=== PATIENT | female | born 2000 | race Caucasian/White ===

== ENCOUNTER 2023-08-19 18:53 | Emergency (ER) | payer OTHER, SELFPAY ==
--- NOTE | ~2023-08-19 | US_ITS ---
EXAMINATION: US OB <=14 wk fetus w TV INDICATION: 7 weeks, no confirmed IUP, vag bleeding w/ clots TECHNIQUE: Sonography of the pelvis was performed by transabdominal and transvaginal techniques. COMPARISON: None. RESULT: Uterus: 7.3 x 4.7 x 5.2 cm. Anteverted. Homogenous myometrium. Intrauterine gestational sac: Single present. Mean Sac Diameter: 1.06 cm, corresponding gestational age 5 week 6 days. Yolk sac: None visualized. Embryo: Not seen. Subgestational hematoma: Absent . Right ovary: 2.4 x 1.4 x 1.2 cm. Vascular flow is present. No adnexal mass. Left ovary: 3.2 x 2.2 x 2.2 cm. Vascular flow is present. Corpus luteal cyst. Pelvis free fluid: Physiologic volume free fluid IMPRESSION: Intrauterine of uncertain viability. No pole identified, however this may be normal a t this stage of . Estimated Gestational Age: 5 weeks, 6 days by mean gestational sac diameter. AMY by ultrasound 2023. Recommend clinical/laboratory and sonographic follow-up to confirm viability. Reviewed, dictated and finalized at location [facility]. IMPRESSION: Intrauterine of uncertain viability. No pole identified, howeve r this may be normal at this stage of . Estimated Gestational Age: 5 weeks, 6 days by mean gestational sac diameter. E DD by ultrasound 04/14/2024. Recommend clinical/laboratory and sonographic follow-up to confirm viability.
[2023-08-19 18:57] VITALS: BP 153/95; PULSE 99; RESP 16; TEMP 36.8; O2SAT 100
[2023-08-19 19:13] LABS: Basophils Percent Auto 0.3 % (0.2-1.2); Eosinophils Absolute Auto 0.2 K/mm3 (0-0.3); Eosinophils Percent Auto 2.4 % (0-4.4); Hematocrit 38.6 % (37.0-47.0); Hemoglobin 11.8 g/dL (12.0-15.0); Immature Granulocyte Absolute 0.03 K/mm3 (0.00-0.031); Immature Granulocyte Percent A 0.3 % (0-0.5); Lymphocytes Absolute Auto 2.89 K/mm3 (0.9-3.2); Lymphocytes Percent Auto 28.4 % (18.3-44.2); Mean Corpuscular HGB Conc 30.6 g/dl (32-36); Mean Corpuscular Hemoglobin 25.5 pg (26-34); Mean Corpuscular Volume 83.4 fl (80-100); Mean Platelet Volume 9.2 fl (7.4-10.4); Monocytes Absolute Auto 0.7 K/mm3 (0.1-0.6); Neutrophils Absolute Auto 6.3 K/mm3 (1.3-6.7); Neutrophils Percent Auto 61.6 % (45.5-73.1); Platelet Count Result 355 k/mm3 (150-375); Red Blood Count 4.63 M/mm3 (4.2-5.4); Red Cell Distribution Width 14.6 % (11.5-14.5); White Blood Count 10.2 K/mm3 (4.5-10.0)
[2023-08-19 19:22] LABS: INR 0.9; Prothrombin Time 12.5 Seconds (11.1-14.7)
[2023-08-19 19:23] LABS: Partial Thromboplastin Time 27.6 Seconds (22.3-36.8)
[2023-08-19 19:35] LABS: Alanine Aminotransferase 29 U/L (6-35); Albumin Level 4.6 g/dL (3.5-5.1); Alkaline Phosphatase 82 U/L (38-126); Anion Gap 9 mmol/L (4-12); Aspartate Amino Transferase 25 U/L (14-36); Bilirubin,Total 0.2 mg/dL (0.2-1.3); Blood Urea Nitrogen 8 mg/dL (7-17); Calcium 9.7 mg/dL (8.4-10.2); Carbon Dioxide 22 mmol/L (22-30); Chloride 105 mmol/L (98-107); Estimated Glomerular Filt Rate > 60; Glucose 109 mg/dL (65-110); Potassium 3.9 mmol/L (3.4-5.0); Sodium 136 mmol/L (137-145)
--- NOTE | 2023-08-19 19:47 | ED.PREGNANCY ---
HPI - General Chief complaint: Vaginal Bleeding Stated complaint: vaginal bleeding 7 weeks preg Time Seen by Provider: 08/19/23 19:08 Source: patient Mode of arrival: ambulatory Limitations: no limitations History of Present Illness HPI Narrative: Patient is a 23-year-old female who presents the ED with report of vaginal bleeding. Patient is and currently approx 7 weeks gestation with LNMP of 06/26. She reports having an ultrasound at 5 weeks gestation, but states it was too early to see the necessary features. Saw a gestational sac, but no yolk sac or pole. Patient sees an OBGYN with [facility]. She reports she developed dark brown vaginal spotting yesterday. Bleeding became heavier, bright red, with some clots today. Reports some lower abdominal cramping. Denies significant nausea or vomiting. Denies fevers. Denies dizziness, lightheadedness, syncope. Related Data Allergies Allergy/AdvReac Type Severity Reaction Status Date / Time No Known Allergies Allergy Verified 08/19/23 18:54 Review of Systems Review of Systems: CONSTITUTIONAL: Denies fever, chills, or sweats. GASTROINTESTINAL: See HPI. GENITOURINARY: See HPI. MUSCULOSKELETAL: Denies back pain, extremity pain, myalgia. All systems reviewed & are unremarkable except as noted in HPI and below Exam Narrative: GENERAL: Well appearing, well-nourished, non-toxic, in no acute distress. HEAD: Normocephalic, atraumatic. RESPIRATORY: Airway patent, respirations nonlabored. Clear to auscultation bilaterally, no rales, rhonchi, wheezing. CARDIOVASCULAR: Regular rate and rhythm ABDOMINAL: Soft, no significant tenderness throughout abdomen, nondistended. Normoactive BS. MUSCULOSKELETAL: Moves all extremities. No gross deformities. SKIN: Warm, dry, normal color. NEURO: A&O X3. Speech clear. PSYCHIATRIC: Tearful. Normal interaction. Course Vital Signs Vital signs: Vital Signs Temperature 98.3 F 08/19/23 18:57 Pulse Rate 99 08/19/23 18:57 Respiratory Rate 16 08/19/23 18:57 Blood Pressure 153/95 H 08/19/23 18:57 Pulse Oximetry 100 08/19/23 18:57 Oxygen Delivery Room Air 08/19/23 18:57 Temperature 98.2 F 08/19/23 21:25 Pulse Rate 81 08/19/23 21:25 Respiratory Rate 17 08/19/23 21:25 Blood Pressure 119/76 08/19/23 21:25 Pulse Oximetry 100 08/19/23 21:25 Oxygen Delivery Room Air 08/19/23 18:57 MDM - OB/Uterine Contractions MDM Narrative Medical decision making narrative: Patient presented to ED with vaginal bleeding, approximately 7 weeks gestation, . Vital signs are stable upon arrival. Patient mildly anxious and tearful. Cbc with very minimal anemia at 11.8. No records to compare to. CMP w/o abnormalities. UA with lots of blood, no evidence of infection. Beta quant 2660. No records to compare to. Patient's blood type is A+, RhoGAM not indicated. Pelvic ultrasound obtained and showing IUP without pole or cardiac activity. Measuring 5 weeks gestation. Based on US results, lack of progression of , in combination with new bleeding, overall picture consistent with spontaneous/impending / nonviable . Discussed lab and imaging findings with patient. Discussed performing pelvic exam to look at cervix and evaluate bleeding, however patient deferred at this time. Understandable of diagnosis and possibility of further bleeding. States she will follow-up with OBGYN for further evaluation. I advised patient to contact office tomorrow to make sooner follow-up appointment, discussed obtaining repeat beta quant hCG in 48 hours. Will provide patient with on-call OBGYN information in case she is unable to make an appointment this week with her OB. Advised patient to continue to monitor bleeding at home, given strict return precautions. She is in agreement with plan and feels ready for discharge home. Discharged in stable condition. Vital signs stable at time of
[2023-08-19 21:02] LABS: Appearance Urine Cloudy (Clear); Bacteria Urine None Seen /hpf; Bilirubin Urine Negative (Negative); Blood Urine 3+ (Negative); Color Urine Yellow (Yellow); Glucose Urine UA Negative (Negative); Ketones Urine Negative (Negative); Leukocyte Esterase Ur Trace LEU/UL (Negative); Need Manual Microscopic Reviewed; Nitrate Urine Negative (Negative); Non Pathogenic Casts 0-2; Protein Urine Trace mg/dL (Negative); RBC Urine >100 /hpf (0-2); Specific Grav Ur 1.009 (1.001-1.035); Squamous Epithelial Cell Urine None Seen /hpf (Few); Urobilinogen Urine 0.2 mg/dL (<2.0); WBC Urine 0-5 /hpf (0-3)
[2023-08-19 21:11] LABS: Add Urine Microscopic? YES
[2023-08-19 21:25] VITALS: BP 119/76; PULSE 81; RESP 17; TEMP 36.8; O2SAT 100
== END 2023-08-19 21:26 | disposition home or self-care (01) ==
PROVIDERS: Emergency Medicine; Emergency Provider Physician Assistant
DX: O03.9 Complete or unspecified spontaneous abortion without complication (principal)
CPT/HCPCS: 36415; 76801; 76817; 80053; 81001; 84702; 85025; 85461; 85610; 85730; 86850; 86900; 86901; 99284